=== PATIENT | female | born 1960 | race Caucasian/White ===

== ENCOUNTER 2023-10-27 13:00 | Outpatient (RCR) | payer OTHER, SELFPAY ==
--- NOTE | 2023-10-12 16:44 | PT.OIE ---
Current Diagnoses Lymphedema, not elsewhere classified (10/12/23) Visit Care Team Role Provider Type Katie Honeycutt MD Attending Provider Non-Staff Family Provider Primary Care Provider Referring Provider Specialty: Internal Medicine Address: [address] [place] [address], [facility] Email: Physical Therapy Initial Evaluation PT-OP-A Visit Information Start: 10/12/23 08:08 Freq: Status: Active Protocol: Document 10/12/23 13:01 SAK (Rec: 10/12/23 14:22 [facility] [id number]) Out-Patient Physical Therapy Visit Information Visit Information Visit Type Initial Evaluation Visit Start Time 13:01 Visit Stop Time 14:32 Visit Number 1 Evaluation Information Evaluation Date 10/12/23 PT-OP-B Current Condition Start: 10/12/23 08:08 Freq: Status: Active Protocol: Document 10/12/23 13:01 SAK (Rec: 10/12/23 14:22 [facility] [id number]) Current Condition History of Current Condition Onset Date 2003 Current Complaints edema left foot and ankle History of Current Condition abdominal surgery for borderline ovarian cancer 2003 including removal of some lymph nodes, thinks in the groin left. Didn't really have swelling until a few years after, intially on and off. Around April 2023 swelling got worse, never had to wear compression previously , and swelling started to not go down at night. Has been wearing compression stocking knee high thinks may be 20-30 mm Hg, wears every day not at night, maintaining current level of swelling. Tried lymphatic massage at [facility] but not successful. Watched videos and tried that method, not helpful. Not sure if swollen upper leg but I wouldn't be surprised. Can't wear her usual shoes due to the edema Treatment Goals Patient/Caregiver Goals Decrease and be able to self manage her lymphedema Prior Functional Status Baseline Function- ADL's Independent Baseline Function- Mobility Independent Baseline Function- Gait indep Current Functional Impairments (Reported) Functional Limitations- ADL's can't wear usual shoes Functional Limitations- Mobility/Gait challenges due to inability to wear usual footwear. PT-OP-C Subjective Start: 10/12/23 08:08 Freq: Status: Active Protocol: Document 10/12/23 13:01 SAK (Rec: 10/12/23 14:22 [facility] [id number]) OP-PT Pain Assessment Pain Assessment Grid Paper Pain Assessment Grid Completed Yes Location left LE Intensity 0 PT-OP-G Mobility & Gait Start: 10/12/23 08:08 Freq: Status: Active Protocol: Document 10/12/23 13:01 [facility] (Rec: 10/12/23 16:21 [facility] [id number]) OP Gait Assessment Gait Gait Assistance Required: Independent Assistive Devices Assistive Device None Gait Deviations General Gait Pattern Within Normal Limits PT-OP-J Posture/Palpation/Skin Start: 10/12/23 08:08 Freq: Status: Active Protocol: Document 10/12/23 13:01 [facility] (Rec: 10/12/23 16:21 [facility] [id number]) Skin Assessment Edema Assessment left foot and ankle Edema Appearance Puffy Comments No increased warmth or redness . No discoloration. PT-OP-K Range of Motion Start: 10/12/23 08:08 Freq: Status: Active Protocol: Document 10/12/23 13:01 [facility] (Rec: 10/12/23 16:21 [facility] [id number]) Ankle and Foot Goniometric Range of Motion Ankle and Foot trudi Ankle/Foot ROM WFL Yes PT-OP-N Lymphedema Start: 10/12/23 08:08 Freq: Status: Active Protocol: Document 10/12/23 13:01 [facility] (Rec: 10/12/23 14:22 [facility] [id number]) Lymphedema Measurements Lower Extremity Circumference Measurements Right Unaffected MT Heads 20.8 cm Mid-foot 20.5 cm Medial Malleolus 24 cm 10 cm From Medial Malleolus 23.2 cm 20 cm From Medial Malleolus 33.5 cm 30 cm From Medial Malleolus 34.3 cm 40 cm From Medial Malleolus 36.7 cm 50 cm From Medial Malleolus 40.6 cm 60 cm From Medial Malleolus 47.4 cm 70 cm From Medial Malleolus 57.9 cm 80 cm From Medial Malleolus 64.7 cm Knee Joint 36.7 cm Hip 62 cm Left Affected MT Heads 21.8 cm Mid-foot 22.2 cm Medial Malleolus 23.3 cm 10 cm From Medial Malleolus 24 cm 20 cm From Medial Malleolus 34.7 cm 30 cm From Medial Malleolus 33 cm 40 cm From Medial Malleolus 38.3 cm 50 cm From Medial Malleolus 44.7 cm 60 cm From Medial Malleolus 52 cm 70 cm From Medial Malleolus 62 cm 80 cm From Medial Malleolus 62 cm Knee Joint 37 cm Hip 62 cm Comments Lymphedema Comments + Stemmer sign left PT-OP-Q Treatments Start: 10/12/23 08:08 Freq: Status: Active Protocol: Document 10/12/23 13:01 [facility] (Rec: 10/12/23 16:44 [facility] [id number]) Lymphedema Treatment Manual Lymphatic Drainage Location for left LE lymphedema Duration 24 Comments with patient instruction self massage using handout, referred to online video Lymphedema Wrapping Body Location left LE toes to knee Materials Elastomull toes, Tricofix size F, Artiflex (2), Comprilan (6 ,8,10) Other patient instruction during bandaging Sequential Lymphedema Exercises Location for left LE lymphedema Comments patient instruction and issued handout Compression Garment Assessment Compression Garment Assessment Details wore knee high compression stocking to PT, loose fit. Patient instructed to bring all compression garments she has for evaluation next session Patient Education Lymphedema Pathology instrsucted Lymphedema Prevention instructed Lymphedema Precautions instructed Compression Garments discussed current one worn today not very effective, bring any compression Self Manual Lymphatic Drainage instructed Sequential Lymphedema Exercises instrsucted, HO issued PT-OP-T Assessment and Plan Start: 10/12/23 08:08 Freq: Status: Active Protocol: Document 10/12/23 13:01 [facility] (Rec: 10/12/23 16:44 [facility] [id number]) Physical Therapy Assessment Rehab Potential Rehabilitation Potential Good Evaluation Complexity Number of Personal Factors/Comorbidities 1-2 Number of Body Systems Impaired 3 Clinical Presentation at Evaluation Evolving Impairments Impairments Edema Goals Two Impairment Lymphedema life impact scale 13% [facility] Goal (LTG) Decrease score on Lymphedema life impact scale to no greater than 6% as measure of improvement in patient ability to self manage her lymphedema and the ability to resume wearing her usual shoes due to decrease in edema. LTG Duration 01/12/24 One Impairment lymphedema left LE Short Term Goal (STG) Patient will be instructed in all aspects of lymphedema self -care to include skin care, elevation, self-massage, self- bandaging/compression options, and lymphedema exercises. STG Duration 11/15/23 Cephalometric Technician Goal (LTG) Decrease patient?s lymphedema to a stable level (no increase or decrease greater than 1 cm over the course of 1 week), patient to be independent with all aspects of self-care for lymphedema, and will obtain appropriate compression garment for lymphedema management in the home. LTG Duration 01/12/24 Assessment Summary Assessment Patient presents to PT with function-limiting stage II lymphedema left LE from toes to thighs resulting from abdominal surgery 2003 for uterine cancer in which lymph nodes were removed. She reports worsening over the past 5 months to the point that she is unable to wear regular shoes. She has various compression stockings that she reports don't do much . She has never had treatment for the lymphedema, but verbalizes understanding of the potential for worsening and complications such as cellulitis if left unmanaged. Feel she will benefit from PT for Complete Decongestive Therapy to decrease her lymphedema, help her be able to self manage including obtaining appropriate compression garments. Treatment initiated today with patient education and trial LE bandaging toes to knee, with consideration for bandaging into thigh if tolerated. POC was discussed and patient was in agreement. She appears highly motivated. Physical Therapy Plan Frequency and Duration Frequency of Treatment 20 visits Duration of treatment (weeks) 12 Plan of Care Start Date 10/12/23 Plan of Care End Date 01/12/24 Therapeutic Interventions Therapeutic Interventions Home Exercise Program, Lymphedema Management,Manual Therapy,Patient/Caregiver Education,Self-Care/Home Management,Taping,Therapeutic Exercises Modalities Vasopneumatic Devices Next Visit Focus/Plan Next Note Type Treatment Note Next Visit Plan Assess response to lymphedema bandaging. Patient to bring in current compression garments for evaluation. Continue CDT to address lymphedema with patient education for self management while PT on vacation, and options for obtaining compression garments.
--- NOTE | 2023-10-12 16:44 | PT.OPPOC ---
Physical, Occupational & Speech Therapy At [facility] Current Diagnoses Lymphedema, not elsewhere classified (10/12/23) Visit Care Team Role Provider Type Katie Honeycutt MD Attending Provider Non-Staff Family Provider Primary Care Provider Referring Provider Specialty: Internal Medicine Address: [address] [place] [address], [id number] Email: Plan Of Care PT-OP-T Assessment and Plan Start: 10/12/23 08:08 Freq: Status: Active Protocol: Document 10/12/23 13:01 [facility]RO (Rec: 10/12/23 16:44 [facility]AK [id number]) Physical Therapy Assessment Rehab Potential Rehabilitation Potential Good Evaluation Complexity Number of Personal Factors/Comorbidities 1-2 Number of Body Systems Impaired 3 Clinical Presentation at Evaluation Evolving Impairments Impairments Edema Goals Two Impairment Lymphedema life impact scale 13% Cull Grader Goal (LTG) Decrease score on Lymphedema life impact scale to no greater than 6% as measure of improvement in patient ability to self manage her lymphedema and the ability to resume wearing her usual shoes due to decrease in edema. LTG Duration 01/12/24 One Impairment lymphedema left LE Short Term Goal (STG) Patient will be instructed in all aspects of lymphedema self -care to include skin care, elevation, self-massage, self- bandaging/compression options, and lymphedema exercises. STG Duration 11/15/23 Care Home Goal (LTG) Decrease patient?s lymphedema to a stable level (no increase or decrease greater than 1 cm over the course of 1 week), patient to be independent with all aspects of self-care for lymphedema, and will obtain appropriate compression garment for lymphedema management in the home. LTG Duration 01/12/24 Assessment Summary Assessment Patient presents to PT with function-limiting stage II lymphedema left LE from toes to thighs resulting from abdominal surgery 2003 for uterine cancer in which lymph nodes were removed. She reports worsening over the past 5 months to the point that she is unable to wear regular shoes. She has various compression stockings that she reports don't do much . She has never had treatment for the lymphedema, but verbalizes understanding of the potential for worsening and complications such as cellulitis if left unmanaged. Feel she will benefit from PT for Complete Decongestive Therapy to decrease her lymphedema, help her be able to self manage including obtaining appropriate compression garments. Treatment initiated today with patient education and trial LE bandaging toes to knee, with consideration for bandaging into thigh if tolerated. POC was discussed and patient was in agreement. She appears highly motivated. Physical Therapy Plan Frequency and Duration Frequency of Treatment 20 visits Duration of treatment (weeks) 12 Plan of Care Start Date 10/12/23 Plan of Care End Date 01/12/24 Therapeutic Interventions Therapeutic Interventions Home Exercise Program, Lymphedema Management,Manual Therapy,Patient/Caregiver Education,Self-Care/Home Management,Taping,Therapeutic Exercises Modalities Vasopneumatic Devices Next Visit Focus/Plan Next Note Type Treatment Note Next Visit Plan Assess response to lymphedema bandaging. Patient to bring in current compression garments for evaluation. Continue CDT to address lymphedema with patient education for self management while PT on vacation, and options for obtaining compression garments. Plan of Care Dates Plan of Care Start Date 10/12/23 Plan of Care End Date 01/12/24 Electronically Signed by: Loli Rojas, PT 10/12/23 2809 If you are in agreement with this Plan of Care, please return a signed and dated copy. I have reviewed this Plan of Care and certify that the skilled therapy services above are required to meet the patient?s needs. Physician Signature Date Printed Name and Credentials Clinical Instructor Signature Printed Name and Credentials
--- NOTE | 2023-10-13 16:58 | PT.OTN ---
Current Diagnoses Lymphedema, not elsewhere classified (10/13/23) Physical Therapy Treatment Note PT-OP-A Visit Information Start: 10/12/23 08:08 Freq: Status: Active Protocol: Document 10/13/23 13:00 [facility] (Rec: 10/13/23 13:27 [facility] [id number]) Out-Patient Physical Therapy Visit Information Visit Information Visit Type Treatment Note Visit Start Time 13:01 Visit Number 2 Evaluation Information Evaluation Date 10/12/23 PT-OP-B Current Condition Start: 10/12/23 08:08 Freq: Status: Active Protocol: Document 10/13/23 13:00 [facility] (Rec: 10/13/23 13:27 [facility] [id number]) Current Condition History of Current Condition Onset Date 2003 Current Complaints edema left foot and ankle History of Current Condition abdominal surgery for borderline ovarian cancer 2003 including removal of some lymph nodes, thinks in the groin left. Didn't really have swelling until a few years after, intially on and off. Around April 2023 swelling got worse, never had to wear compression previously , and swelling started to not go down at night. Has been wearing compression stocking knee high thinks may be 20-30 mm Hg, wears every day not at night, maintaining current level of swelling. Tried lymphatic massage at [facility] but not successful. Watched videos and tried that method, not helpful. Not sure if swollen upper leg but I wouldn't be surprised. Can't wear her usual shoes due to the edema Treatment Goals Patient/Caregiver Goals Decrease and be able to self manage her lymphedema PT-OP-C Subjective Start: 10/12/23 08:08 Freq: Status: Active Protocol: Document 10/13/23 13:00 [facility] (Rec: 10/13/23 13:27 [facility] [id number]) OP-PT Subjective Patient Comments Patient Comments Able to wear compression bandaging overnight. Brought compression stockings that she has; 15-20, 20-30 both knee high. PT-OP-G Mobility & Gait Start: 10/12/23 08:08 Freq: Status: Active Protocol: Document 10/12/23 13:01 SAK (Rec: 10/12/23 16:21 [facility] [id number]) OP Gait Assessment Gait Gait Assistance Required: Independent Assistive Devices Assistive Device None Gait Deviations General Gait Pattern Within Normal Limits PT-OP-J Posture/Palpation/Skin Start: 10/12/23 08:08 Freq: Status: Active Protocol: Document 10/12/23 13:01 [facility] (Rec: 10/12/23 16:21 [facility] [id number]) Skin Assessment Edema Assessment left foot and ankle Edema Appearance Puffy Comments No increased warmth or redness . No discoloration. PT-OP-K Range of Motion Start: 10/12/23 08:08 Freq: Status: Active Protocol: Document 10/12/23 13:01 [facility] (Rec: 10/12/23 16:21 [facility] [id number]) Ankle and Foot Goniometric Range of Motion Ankle and Foot trudi Ankle/Foot ROM WFL Yes PT-OP-N Lymphedema Start: 10/12/23 08:08 Freq: Status: Active Protocol: Document 10/13/23 13:00 [facility] (Rec: 10/13/23 14:00 [facility] [id number]) Lymphedema Measurements Lower Extremity Circumference Measurements Left Affected MT Heads 21.3 cm Mid-foot 21.8 cm Medial Malleolus 23.8 cm 10 cm From Medial Malleolus 23.4 cm 20 cm From Medial Malleolus 33.5 cm 30 cm From Medial Malleolus 33.3 cm 40 cm From Medial Malleolus 37.9 cm 50 cm From Medial Malleolus 43.8 cm 60 cm From Medial Malleolus 52.8 cm 70 cm From Medial Malleolus 60.6 cm 80 cm From Medial Malleolus 64.2 cm Knee Joint 36 cm Hip 64 cm PT-OP-Q Treatments Start: 10/12/23 08:08 Freq: Status: Active Protocol: Document 10/13/23 13:00 [facility] (Rec: 10/13/23 16:58 [facility] [id number]) Cardio Equipment Recumbent Elliptical (Biodex) Duration (Minutes) 10 Resistance 1 Seat Position 6 Other to facilitate lymphatic flow s /p MLD and compression bandaging Lymphedema Treatment Manual Lymphatic Drainage Location for left LE lymphedema Duration 30 Comments with patient instruction self massage using handout, referred to online video Lymphedema Wrapping Body Location left LE toes to upper thigh Materials Elastomull toes, Tricofix size F, Artiflex (4 ), Komprex kidneys (20, Comprilan (6,8, 10x2, 12) Other patient instruction during bandaging Sequential Lymphedema Exercises Comments Biodex as above REview sequential lymphedema ex Compression Garment Assessment Compression Garment Assessment Details patient brought 3 compression stockings (knee high); one 15- 20 mm Hg, one 20-30 mm Hg, one not known. Patient shown toe cap size L (too large), and Juzo 20-30 mm Hg size II thigh high with good fit; instructed wear if not able to bandage for trial Patient Education Other instructed in self bandaging for home care, demonstrated fair understanding, to use video and practice at home. PT-OP-T Assessment and Plan Start: 10/12/23 08:08 Freq: Status: Active Protocol: Document 10/13/23 13:00 [facility] (Rec: 10/13/23 16:58 [facility] [id number]) Physical Therapy Assessment Rehab Potential Rehabilitation Potential Good Goals Two Impairment Lymphedema life impact scale 13% Industrial Mechanic Goal (LTG) Decrease score on Lymphedema life impact scale to no greater than 6% as measure of improvement in patient ability to self manage her lymphedema and the ability to resume wearing her usual shoes due to decrease in edema. LTG Duration 01/12/24 One Impairment lymphedema left LE Short Term Goal (STG) Patient will be instructed in all aspects of lymphedema self -care to include skin care, elevation, self-massage, self- bandaging/compression options, and lymphedema exercises. STG Duration 11/15/23 [facility] Goal (LTG) Decrease patient?s lymphedema to a stable level (no increase or decrease greater than 1 cm over the course of 1 week), patient to be independent with all aspects of self-care for lymphedema, and will obtain appropriate compression garment for lymphedema management in the home. LTG Duration 01/12/24 Assessment Summary Assessment Patient circumferential measurements decreased in foot and lower leg, inc proximal thigh, PT advised thigh high bandaging and consider wearing compression shorts. MLD performed with patient instruction. REviewed HEP, issued trial thigh high Juzo compression stocking for trial especially use if unable to bandage. Patient instructed in self bandaging and to use online video resource to try at home. No further PT appointments available for 1 1 /2 weeks. Patient demonstrated good understanding and will order second set of bandages. Physical Therapy Plan Frequency and Duration Frequency of Treatment 20 visits Duration of treatment (weeks) 12 Plan of Care Start Date 10/12/23 Plan of Care End Date 01/12/24 Therapeutic Interventions Therapeutic Interventions Home Exercise Program, Lymphedema Management,Manual Therapy,Patient/Caregiver Education,Self-Care/Home Management,Taping,Therapeutic Exercises Modalities Vasopneumatic Devices Next Visit Focus/Plan Next Note Type Treatment Note Next Visit Plan Continue CDT, assess home care , readiness for compression garment fitting.
--- NOTE | 2023-10-27 18:04 | PT.OTN ---
Current Diagnoses Lymphedema, not elsewhere classified (10/27/23) Physical Therapy Treatment Note PT-OP-A Visit Information Start: 10/12/23 08:08 Freq: Status: Active Protocol: Document 10/27/23 13:00 [facility] (Rec: 10/27/23 13:39 [facility] [id number]) Out-Patient Physical Therapy Visit Information Visit Information Visit Type Treatment Note Visit Start Time 13:00 Visit Stop Time 14:30 Visit Number 3 Evaluation Information Evaluation Date 10/12/23 PT-OP-B Current Condition Start: 10/12/23 08:08 Freq: Status: Active Protocol: Document 10/27/23 13:00 [facility] (Rec: 10/27/23 13:39 [facility] [id number]) Current Condition History of Current Condition Onset Date 2003 Current Complaints edema left foot and ankle History of Current Condition abdominal surgery for borderline ovarian cancer 2003 including removal of some lymph nodes, thinks in the groin left. Didn't really have swelling until a few years after, intially on and off. Around April 2023 swelling got worse, never had to wear compression previously , and swelling started to not go down at night. Has been wearing compression stocking knee high thinks may be 20-30 mm Hg, wears every day not at night, maintaining current level of swelling. Tried lymphatic massage at [facility] but not successful. Watched videos and tried that method, not helpful. Not sure if swollen upper leg but I wouldn't be surprised. Can't wear her usual shoes due to the edema PT-OP-C Subjective Start: 10/12/23 08:08 Freq: Status: Active Protocol: Document 10/27/23 13:00 [facility] (Rec: 10/27/23 13:39 [facility] [id number]) OP-PT Subjective Patient Comments Patient Comments quite a learning curve for bandaging. Feels like the swelling is going down. Tried thigh high compression loaned to her; good fit, only wore for a short time PT-OP-G Mobility & Gait Start: 10/12/23 08:08 Freq: Status: Active Protocol: Document 10/12/23 13:01 [facility] (Rec: 10/12/23 16:21 [facility] [id number]) OP Gait Assessment Gait Gait Assistance Required: Independent Assistive Devices Assistive Device None Gait Deviations General Gait Pattern Within Normal Limits PT-OP-J Posture/Palpation/Skin Start: 10/12/23 08:08 Freq: Status: Active Protocol: Document 10/12/23 13:01 [facility] (Rec: 10/12/23 16:21 [facility] [id number]) Skin Assessment Edema Assessment left foot and ankle Edema Appearance Puffy Comments No increased warmth or redness . No discoloration. PT-OP-K Range of Motion Start: 10/12/23 08:08 Freq: Status: Active Protocol: Document 10/12/23 13:01 [facility] (Rec: 10/12/23 16:21 [facility] [id number]) Ankle and Foot Goniometric Range of Motion Ankle and Foot trudi Ankle/Foot ROM WFL Yes PT-OP-N Lymphedema Start: 10/12/23 08:08 Freq: Status: Active Protocol: Document 10/27/23 13:00 [facility] (Rec: 10/27/23 13:39 [facility] [id number]) Lymphedema Measurements Lower Extremity Circumference Measurements Left Affected MT Heads 21 cm Mid-foot 21.1 cm Medial Malleolus 23.7 cm 10 cm From Medial Malleolus 23.2 cm 20 cm From Medial Malleolus 33.3 cm 30 cm From Medial Malleolus 32.2 cm 40 cm From Medial Malleolus 36.8 cm 50 cm From Medial Malleolus 43.7 cm 60 cm From Medial Malleolus 53 cm Knee Joint 35.7 cm PT-OP-Q Treatments Start: 10/12/23 08:08 Freq: Status: Active Protocol: Document 10/27/23 13:00 [facility] (Rec: 10/27/23 13:39 [facility] [id number]) Lymphedema Treatment Manual Lymphatic Drainage Location for left LE lymphedema Duration 30 Comments with patient instruction self massage using handout, referred to online video Lymphedema Wrapping Body Location left LE toes to upper thigh Materials Elastomull toes, Tricofix size F, Artiflex (4 ), Komprex kidneys (20, Comprilan (6,8, 10x2, 12) Other patient instruction during bandaging Sequential Lymphedema Exercises Comments Biodex as above REview sequential lymphedema ex PT-OP-T Assessment and Plan Start: 10/12/23 08:08 Freq: Status: Active Protocol: Document 10/27/23 13:00 [facility] (Rec: 10/27/23 13:39 [facility] [id number]) Physical Therapy Assessment Goals Two Impairment Lymphedema life impact scale 13% Health Lead Goal (LTG) Decrease score on Lymphedema life impact scale to no greater than 6% as measure of improvement in patient ability to self manage her lymphedema and the ability to resume wearing her usual shoes due to decrease in edema. LTG Duration 01/12/24 One Impairment lymphedema left LE Short Term Goal (STG) Patient will be instructed in all aspects of lymphedema self -care to include skin care, elevation, self-massage, self- bandaging/compression options, and lymphedema exercises. STG Duration 11/15/23 Health Lead Goal (LTG) Decrease patient?s lymphedema to a stable level (no increase or decrease greater than 1 cm over the course of 1 week), patient to be independent with all aspects of self-care for lymphedema, and will obtain appropriate compression garment for lymphedema management in the home. LTG Duration 01/12/24 Assessment Summary Assessment Patient circumrerential measurements decreased, she is highly compliant to self care for lymphedema and asked very appropriate and insightful questions today. Due to good decrease in circumferential measurements and stabilization feel patient ready for eval and fitting with garment with fitter; patient has requested her information be sent to [facility] in [place] for that service. After receives garments may need 1 additional PT visit, but patient reports feeling comfortable with all aspects of lymphedema care and doesn't think she will need additional visit. Physical Therapy Plan Frequency and Duration Frequency of Treatment 20 visits Duration of treatment (weeks) 12 Plan of Care Start Date 10/12/23 Plan of Care End Date 01/12/24 Therapeutic Interventions Therapeutic Interventions Home Exercise Program, Lymphedema Management,Manual Therapy,Patient/Caregiver Education,Self-Care/Home Management,Taping,Therapeutic Exercises Modalities Vasopneumatic Devices Next Visit Focus/Plan Next Note Type Treatment Note Next Visit Plan Assess fit of compression garments, problem solve any other issues with self care for lymphedema.
--- NOTE | 2024-04-03 12:15 | PT.OPDS ---
Current Diagnoses Lymphedema, not elsewhere classified (10/27/23) Visit Care Team Role Provider Type Katie Honeycutt MD Attending Provider Non-Staff Family Provider Primary Care Provider Referring Provider Specialty: Internal Medicine Address: [address] [place] [address], [facility] Email: Visit Number Visit Number 3 Discharge Summary PT-OP-B Current Condition Start: 10/12/23 08:08 Freq: Status: Active Protocol: Document 10/27/23 13:00 [facility] (Rec: 10/27/23 13:39 [facility] [id number]) Current Condition History of Current Condition Onset Date 2003 Current Complaints edema left foot and ankle History of Current Condition abdominal surgery for borderline ovarian cancer 2003 including removal of some lymph nodes, thinks in the groin left. Didn't really have swelling until a few years after, intially on and off. Around April 2023 swelling got worse, never had to wear compression previously , and swelling started to not go down at night. Has been wearing compression stocking knee high thinks may be 20-30 mm Hg, wears every day not at night, maintaining current level of swelling. Tried lymphatic massage at [facility] PT but not successful. Watched videos and tried that method, not helpful. Not sure if swollen upper leg but I wouldn't be surprised. Can't wear her usual shoes due to the edema PT-OP-C Subjective Start: 10/12/23 08:08 Freq: Status: Active Protocol: Document 10/27/23 13:00 [facility] (Rec: 10/27/23 13:39 [facility] [id number]) OP-PT Subjective Patient Comments Patient Comments quite a learning curve for bandaging. Feels like the swelling is going down. Tried thigh high compression loaned to her; good fit, only wore for a short time PT-OP-G Mobility & Gait Start: 10/12/23 08:08 Freq: Status: Active Protocol: Document 10/12/23 13:01 [facility] (Rec: 10/12/23 16:21 [facility] [id number]) OP Gait Assessment Gait Gait Assistance Required: Independent Assistive Devices Assistive Device None Gait Deviations General Gait Pattern Within Normal Limits PT-OP-J Posture/Palpation/Skin Start: 10/12/23 08:08 Freq: Status: Active Protocol: Document 10/12/23 13:01 [facility] (Rec: 10/12/23 16:21 [facility] [id number]) Skin Assessment Edema Assessment left foot and ankle Edema Appearance Puffy Comments No increased warmth or redness . No discoloration. PT-OP-K Range of Motion Start: 10/12/23 08:08 Freq: Status: Active Protocol: Document 10/12/23 13:01 [facility] (Rec: 10/12/23 16:21 [facility] [id number]) Ankle and Foot Goniometric Range of Motion Ankle and Foot trudi Ankle/Foot ROM WFL Yes PT-OP-N Lymphedema Start: 10/12/23 08:08 Freq: Status: Active Protocol: Document 10/27/23 13:00 [facility] (Rec: 10/27/23 13:39 [facility] [id number]) Lymphedema Measurements Lower Extremity Circumference Measurements Left Affected MT Heads 21 cm Mid-foot 21.1 cm Medial Malleolus 23.7 cm 10 cm From Medial Malleolus 23.2 cm 20 cm From Medial Malleolus 33.3 cm 30 cm From Medial Malleolus 32.2 cm 40 cm From Medial Malleolus 36.8 cm 50 cm From Medial Malleolus 43.7 cm 60 cm From Medial Malleolus 53 cm Knee Joint 35.7 cm PT-OP-T Assessment and Plan Start: 10/12/23 08:08 Freq: Status: Active Protocol: Document 04/03/24 12:14 [facility] (Rec: 04/03/24 12:15 [facility] [id number]) Physical Therapy Plan Discharge Physical Therapy Discharge Reasons No Longer Attending PT
== END 2024-04-05 14:51 | disposition home or self-care (01) ==
LOC: PHYS 13:00
PROVIDERS: Family Provider Internal Medicine; PCP Internal Medicine; Referring Provider Internal Medicine; Visit Provider Internal Medicine
DX: I89.0 Lymphedema, not elsewhere classified (principal)
CPT/HCPCS: 97110; 97140; 97162; 97535